=== PATIENT | male | born 1990 | race Two or more races ===

== ENCOUNTER 2017-04-28 09:27 | Day surgery (SDC) | payer OTHER ==
[2017-04-28] VITALS (10 sets, daily range): BP systolic 119–134; BP diastolic 67–83; PULSE 71–100; RESP 14–20; Ht 172.7 cm; Wt 90.0 kg
[~2017-04-28] VITALS: Ht 172.7 cm; Wt 90.0 kg
[~2017-04-28 09:27] MED LIST: CEFAZOLIN 1 GM INJ ONE
[2017-04-28] MEDS ORDERED: BUPIVACAINE 0.25% (MPF) 30 ML INJ ONE (11:19)
[2017-04-28] MEDS ORDERED: CEFAZOLIN 1 GM/50 ML (PMX) 50 ML IVPB SCH (11:30)
[2017-04-28] MEDS ORDERED: PROPOFOL 20 ML ONE (12:30)
[2017-04-28] MEDS ORDERED: ROCURONIUM 50 MG INJ ONE (12:30)
[2017-04-28] MEDS ORDERED: LIDOCAINE 2% (SDV) 5 ML INJ ONE (12:30)
[2017-04-28] MEDS ORDERED: ONDANSETRON 4 MG INJ IV PRN (13:00)
[2017-04-28] MEDS ORDERED: METOCLOPRAMIDE 10 MG INJ IV PRN (13:00)
[2017-04-28] MEDS ORDERED: OXYCODONE/ACETAMINOPHEN (5/325) TAB PO PRN ×2 (13:00)
[2017-04-28] MEDS ORDERED: LABETALOL HCL 20MG INJ IV PRN (13:00)
[2017-04-28] MEDS ORDERED: EPHEDrine SULFATE 50 MG/5 ML SYG IV PRN (13:00)
[2017-04-28] MEDS ORDERED: MEPERIDINE 25 MG INJ IV PRN (13:00)
[2017-04-28] MEDS ORDERED: FENTAnyl 50 MCG/ML VIAL IV PRN ×2 (13:00)
[2017-04-28] MEDS ORDERED: hydrALAzine 20 MG INJ IV PRN (13:00)
[2017-04-28] MEDS ORDERED: DIPHENHYDRAMINE 50 MG INJ IV PRN (13:00)
[2017-04-28] MEDS ORDERED: HYDROmorphONE (0.2 MG/ML) 10ML SYG IV PRN ×3 (13:00)
--- NOTE | 2017-04-28 13:06 | HPN ---
Date/Time of Note Date/Time of Note DATE: 04/28/17 TIME: 13:05 Interval H&P Admission Note Pt. seen H&P reviewed: No system changes DESIRE MILNER MD Apr 28, 2017 13:05
[2017-04-28] MEDS ORDERED: BUPIVACAINE 0.5% (SDV) 30 ML INJ ONE (13:18)
[2017-04-28] MEDS ORDERED: NEOSTIGMINE 3 MG/3 ML SYRINGE ONE (13:49)
[2017-04-28] MEDS ORDERED: HYDROCODONE/APAP (5/325) TAB PO PRN (14:00)
[2017-04-28] MEDS: FENTAnyl 50 MCG/ML VIAL IV PRN ×2 (14:10→14:18)
--- NOTE | 2017-04-28 14:13 | OPR ---
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 Time out was done. The patient was identified by his name, date and the procedure. Patient was given 2 g of Ancef IV at the start of the procedure. They hair around the base of the penis was shaved. The genital area was then prepped and draped in usual sterile manner. The foreskin at the level of the ascencio was marked then incised. The foreskin was then retracted and another incision was made half a centimeter proximal to the ascencio. The skin between the 2 incisions was removed. All the bleeders were electrocoagulated and good hemostasis was obtained. The subcutaneous tissue was approximated with 3-0 Vicryl interrupted sutures at the 9,12, 3 and 6 o'clock position. The incision was then closed with 4-0 and 3-0 Vicryl interrupted sutures. Then the patient was injected with half percent Marcaine around the base of the penis for local anesthesia. The incision was then covered was a Vaseline gauze and a Cristela. Patient was transferred to the recovery room in stable and satisfactory condition. DESIRE MILNER MD Apr 28, 2017 14:11
== END 2017-04-28 15:20 | disposition home or self-care (01) ==
LOC: SDS 09:27
PROVIDERS: ATTEND Urology
DX: N48.0 Leukoplakia of penis (principal)
CPT/HCPCS: 54161; 88304; J0690; J2405; J3010; J2710